=== PATIENT | male | born 1950 | race American Indian/Alaskan Native ===

== ENCOUNTER 2017-02-10 12:59 | Outpatient (CLI) | payer BC ==
--- NOTE | 2017-02-10 16:11 | XRay Report ---
XRAY BILATERAL KNEE THREE VIEWS EACH: 02/10/17 12:59:00 CLINICAL: Status post knee replacements in 2012 and 2014 FINDINGS: Right: Status post total knee replacement with normal appearance of the prosthesis. No apparent loosening. No fracture or dislocation. No joint effusion. Normal soft tissues. Left: Status post total knee replacement with normal appearance of the prosthesis. No apparent loosening. No fracture or dislocation. No joint effusion.Normal soft tissues. IMPRESSION: Negative study status post bilateral total knee replacement.
== END 2017-02-10 13:00 | disposition home or self-care (01) ==
LOC: SPVIMAG 12:59
PROVIDERS: ATTEND Orthopaedic Surgery Sports Medicine
DX: M25.561 Pain in right knee (principal); M25.562 Pain in left knee; Z96.653 Presence of artificial knee joint, bilateral